=== PATIENT | female | born 1960 | race Caucasian/White ===

== ENCOUNTER 2017-07-30 13:37 | Day surgery (SDC) | payer BC ==
[2017-07-24 12:18] LABS: Urine WBC None Seen /hpf (0 - 5)
[2017-07-24 12:51] LABS: Basophils # (auto) 0.1 uL; Basophils % (auto) 0.9 % (0.0-2.0); Eosinophils # (auto) 0.2 uL; Eosinophils % (auto) 2.5 % (0.0-7.0); Hematocrit 42.5 % (36.0-46.0); Hemoglobin 14.1 g/dL (12.2-16.2); Lymphocytes # (auto) 1.5 uL; Lymphocytes % (auto) 23.6 % (10.0-50.0); Mean Corpuscular Hemoglobin 30.2 pg (28.0-32.0); Mean Corpuscular Hgb Conc. 33.2 g/dL (32.0-36.0); Monocytes # (auto) 0.5 uL; Monocytes % (auto) 8.1 % (0.0-12.0); Neutrophils # (auto) 4.1 uL; Neutrophils % (auto) 64.9 % (37.0-80.0); Nucleated Red Blood Cells % 0.1 %; Platelet Count (auto) 338 10^3/uL (140-450); Red Blood Cells 4.66 10^6/uL (4.0-5.20); Red Cell Distribution Width 13.8 % (11.8-14.3); White Blood Cell 6.3 10^3/uL (4.4-10.8)
[2017-07-24 13:03] LABS: Albumin 4.1 g/dL (3.4-5.0); BUN/Creatinine Ratio 14.6; Calcium 9.2 mg/dL (8.5-10.1); Potassium 3.7 mmol/L (3.5-5.1)
[2017-07-24 13:06] LABS: Bilirubin, Total 0.5 mg/dL (0.2-1.0); Total Protein 7.7 g/dL (6.4-8.2)
[2017-07-24 13:12] LABS: INR 0.93 (0.9-1.15); Partial Thromboplastin Time 29.6 sec (22.64-33.71); Prothrombin Time 10.1 sec (9.37-12.3)
[2017-07-24 13:18] LABS: Urine Amorphous Crystal FEW /hpf (None Seen); Urine Bacteria FEW /hpf (None Seen); Urine Blood Negative /uL (Negative); Urine Specific Gravity 1.006 (1.001-1.035)
[~2017-07-30] VITALS: Ht 172.7 cm; Wt 72.6 kg
[~2017-07-30 13:37] MED LIST: THYR60TA PO
[2017-07-30] MEDS ORDERED: LIDOCAINE 1% HCL (LOCAL ANESTH.) INJ 20ML MDV ONE (13:52)
[2017-07-30] MEDS ORDERED: BUPIVACAINE W/ EPINEPH 0.25% INJ 50ML MDV ONE (13:52)
[2017-07-30] MEDS ORDERED: ceFAZolin 1GM VL ONE (13:52)
[2017-07-30] MEDS ORDERED: BUPIVACAINE 0.25% INJ 50ML VIAL ONE (13:52)
[2017-07-30] MEDS ORDERED: CONJ ESTROGENS 0.625MG/GM VAG CRM 30GM PV ONE (13:53)
[2017-07-30] MEDS ORDERED: ceFAZolin 1GM/50ML 50 ML IV ONE (14:11)
[2017-07-30] MEDS ORDERED: VASOPRESSIN 20 UNIT/ML ONE (15:28)
[2017-07-30] MEDS ORDERED: MIDAZOLAM HCL 1MG/1ML-2 ML VIAL ONE (15:29)
[2017-07-30] MEDS ORDERED: MEPERIDINE HCL (50 MG/ML) 1 ML VIAL ONE (15:30)
[2017-07-30] MEDS ORDERED: LACTATED RINGER'S 1,000 ML IV SCH (15:32)
[2017-07-30] MEDS ORDERED: PROPOFOL 10 MG/ML 20 ML IV ONE (15:34)
[2017-07-30] MEDS ORDERED: DEXAMETHASONE SOD PHOS 10MG/1ML VIAL INJ ONE (15:34)
[2017-07-30] MEDS ORDERED: ONDANSETRON HCL 4 MG/2 ML VIAL IV PRN (15:45)
[2017-07-30] MEDS ORDERED: ONDANSETRON HCL 4 MG/2 ML VIAL IV ONE (16:00)
[2017-07-30] MEDS ORDERED: MORPHINE SULFATE 4 MG/ML SYR/VIAL IV PRN (16:00)
[2017-07-30] MEDS ORDERED: HYDROmorphone HCL 2 MG/ML VL IV PRN (16:00)
[2017-07-30] MEDS ORDERED: MIDAZOLAM HCL 1MG/1ML-2 ML VIAL IV PRN (16:00)
[2017-07-30] MEDS ORDERED: KETOROLAC TROMETH 30 MG/ML 1ML VIAL IV ONE (16:00)
[2017-07-30] MEDS ORDERED: ePHEDrine SULFATE 50 MG/ML AMP IV PRN (16:00)
[2017-07-30] MEDS ORDERED: LABETALOL HCL 5 MG/ML 4ML SYRINGE IV PRN (16:00)
[2017-07-30] MEDS ORDERED: MORPHINE SULFATE 4 MG/ML SYR/VIAL IV ONE (16:00)
[2017-07-30] MEDS ORDERED: KETOROLAC TROMETH 30 MG/ML 1ML VIAL ONE (16:01)
[2017-07-30] MEDS ORDERED: ONDANSETRON HCL 4 MG/2 ML VIAL ONE (16:10)
[2017-07-30 17:30] VITALS: BP 123/59
== END 2017-07-30 17:39 | disposition home or self-care (01) ==
LOC: SUR 13:37
PROVIDERS: ATTEND Obstetrics & Gynecology
DX: N81.6 Rectocele (principal); N76.0 Acute vaginitis; D64.9 Anemia, unspecified; Z90.49 Acquired absence of other specified parts of digestive tract; Z88.6 Allergy status to analgesic agent; E66.9 Obesity, unspecified; M32.9 Systemic lupus erythematosus, unspecified
CPT/HCPCS: 36415; 45560; 57135; 80053; 81001; 85025; 85610; 85730; 87086; 88302; 88305; J0690; J1100; J1885; J2001; J2175; J2250; J2405; J2704; J3490